=== PATIENT | female | born 1975 | race Caucasian/White ===

== ENCOUNTER → 2016-11-14 | Outpatient (CLI) | payer BC ==
--- NOTE | 2016-11-20 13:28 | MAM ---
EXAM DESCRIPTION: 3D Screening BILATERAL CLINICAL HISTORY: 41 years, Female, Screening mammogram COMPARISON: None TECHNIQUE: CC and MLO digital mammograms with 3-D tomosynthesis. No CAD utilized. FINDINGS: The breast parenchyma is heterogeneously dense which may decrease the sensitivity of mammography. Asymmetric parenchymal density right breast lateral central breast only well seen on MLO 5 cm from the nipple within an area of dense parenchyma. Benign microcalcifications are present. IMPRESSION: BIRAD CATEGORY: 0 INCOMPLETE FOLLOW-UP: Ultrasound right breast upper outer quadrant/central breast for further evaluation possible abnormality on right MLO view Electronically signed by: Simone Hernandez MD 11/20/2016 1:27 PM CDT
== END ==
LOC: MAMMO 13:19
PROVIDERS: ATTEND Family Medicine
DX: Z12.31 Encounter for screening mammogram for malignant neoplasm of breast (principal)
CPT/HCPCS: G0202; G0279

== ENCOUNTER → 2016-11-22 | Outpatient (CLI) | payer BC ==
--- NOTE | 2016-11-22 15:14 | US ---
EXAM DESCRIPTION: Breast,Right-ultrasound CLINICAL HISTORY: 41 yearsFemaleABNORMAL MAMMO COMPARISON: Digital screening 3-D tomosynthesis mammogram right breast 11/14/2016. TECHNIQUE: Transcutaneous scanning of the upper outer quadrant of the right breast utilizing two-dimensional and Doppler modes. Scanning performed by the anatomic pathology assistant and Dr. Molina. FINDINGS: Heterogeneous fatty and fibrotic glandular tissues are noted. Multiple oval-shaped anechoic objects with well-defined margins in parallel orientation with posterior acoustic enhancement features. Nonvascular. A larger mass is mostly anechoic measuring 8 x 5 mm. posterior dependent echogenicity. Posterior acoustic enhancement and parallel orientation. Mostly well-defined borders, not vascular. Interpreted to be a complicated cyst containing debris. IMPRESSION: BI-RADS CATEGORY: 2 - BENIGN FINDINGS. FOLLOW UP: Return to routine digital bilateral screening mammography, one year interval from November 2016. The findings and the follow-up plan were reviewed in person with the patient after the examination. Written communication explaining the findings and follow-up, will be mailed to the patient and referring health care provider. According to the [employer], yearly mammograms are recommended starting at age 40 and continuing as long as a woman is in good health. Any breast change noted on a breast self-exam should be reported promptly to the patient's healthcare provider. Breast MRI is recommended for women with an approximately 20-25% or greater lifetime risk of breast cancer, including women with a strong family history of breast or ovarian cancer and women who have been treated for Hodgkin's disease. A negative mammographic report should not delay tissue diagnosis in patients with significant clinical history or physical findings. Extremely dense breast tissue limits the sensitivity of digital mammography. Electronically signed by: Shaan Molina MD 11/22/2016 3:13 PM CDT Workstation: [id number]
== END | disposition home or self-care (01) ==
LOC: US 13:31
PROVIDERS: ATTEND Family Medicine
DX: N63 Unspecified lump in breast (principal)

== ENCOUNTER → 2017-02-22 | Outpatient (CLI) | payer BC ==
--- NOTE | 2017-02-23 09:10 | MAM ---
EXAM DESCRIPTION: 3D Diagnostic, Left: Digital Mammography CLINICAL HISTORY: 41 yearsFemaleBREAST LUMP . Lump lateral left breast. Bilateral breast pain right more than left.. COMPARISON: 3-D bilateral screening tomosynthesis study 11/14/2016.. Bilateral targeted breast ultrasound following this examination. Report from prior examination also reviewed. TECHNIQUE: Left breast CC LM projection full-field images, 3-D tomosynthesis digital mammographic technique. Also bilateral synthesized CC LM full-field images. CAD not utilized. FINDINGS: The breast parenchymal density pattern is: Heterogeneously dense breast tissue, which may obscure small masses. No skin thickening or nipple retraction skin marker seen on the lateral aspect of the left breast middle third at 200 clock position. Multiple intramammary well-defined nodular masses without calcifications, stable since the prior study. Solitary microcalcifications. No new focal, stellate mass or density, focal asymmetry , and no suspicious microcalcifications left breast. Stable mammogram compared to prior study, taking into account differences in mammographic technique. ULTRASOUND: Scanning of the right breast at the 900-1000 clock positions, 5 cm from the nipple. 4.6 x 3.0 mm cyst with parallel orientation with posterior acoustic enhancement and well-defined wall. 6.4 x 5.3 mm cyst with well-defined varela, decreased echoes, parallel orientation, and posterior acoustic enhancement. Scanning of the left breast 200-300 clock position 3-4 cm from the nipple. Anechoic mass with well-defined varela, nonvascular, parallel orientation and posterior acoustic enhancement measuring 5 mm. No discrete solid masses bilaterally. No parenchymal edema or large calcifications. No skin thickening. IMPRESSION: BI-RADS CATEGORY: 2 - BENIGN FINDINGS. FOLLOW UP: Routine digital bilateral screening, one year interval from November 2016. The FINDINGS and the follow-up plan were reviewed in person with the patient after the examination. Written communication explaining the IMPRESSION and follow-up will be mailed to the patient and referring care provider. According to the [employer], yearly mammograms are recommended starting at age 40 and continuing as long as a woman is in good health. Any breast change noted on a breast self-exam should be reported promptly to the patient's healthcare provider. Breast MRI is recommended for women with an approximately 20-25% or greater lifetime risk of breast cancer, including women with a strong family history of breast or ovarian cancer and women who have been treated for Hodgkin's disease. A negative mammographic report should not delay tissue diagnosis in patients with significant clinical history or physical findings. Extremely dense breast tissue limits the sensitivity of digital mammography. Electronically signed by: Shaan Molina MD 02/23/2017 9:09 AM [facility]
--- NOTE | 2017-02-23 09:11 | US ---
EXAM DESCRIPTION: Breast,Bilateral: Ultrasound CLINICAL HISTORY: 41 yearsFemaleBREAST LUMP LEFT AND BILATERAL BREAST PAIN, RIGHT MORE THAN LEFT. COMPARISON: Digital 3-D tomosynthesis diagnostic left breast on this visit 3-D tomosynthesis bilateral screening study 11/14/2016. TECHNIQUE: Transcutaneous scanning of the bilateral breasts utilizing two-dimensional and Doppler modes. Scanning performed by the furnace operator and tender and Dr. Molina. FINDINGS: Scanning of the right breast at the 900-1000 clock positions, 5 cm from the nipple. 4.6 x 3.0 mm cyst with parallel orientation with posterior acoustic enhancement and well-defined wall. 6.4 x 5.3 mm cyst with well-defined varela, decreased echoes, parallel orientation, and posterior acoustic enhancement. Scanning of the left breast 200-300 clock position 3-4 cm from the nipple. Anechoic mass with well-defined varela, nonvascular, parallel orientation and posterior acoustic enhancement measuring 5 mm. No discrete solid masses bilaterally. No parenchymal edema or large calcifications. No skin thickening. IMPRESSION: 1. Bi-Rads Category 2: Benign. 2. Please refer to 3-D tomosynthesis diagnostic left breast examination and report today. The FINDINGS and the follow-up plan were reviewed in person with the patient after the examination. Written communication explaining the IMPRESSION and follow-up will be mailed to the patient and referring care provider. Electronically signed by: Shaan Molina MD 02/23/2017 9:09 AM [facility]
== END | disposition home or self-care (01) ==
LOC: US 15:30
DX: R92.8 Other abnormal and inconclusive findings on diagnostic imaging of breast (principal)
CPT/HCPCS: 76641; G0206; G0279